=== PATIENT | male | born 1990 | race Caucasian/White ===

== ENCOUNTER 2018-09-22 23:24 | Inpatient (IN) ==
[2018-09-23] MEDS ORDERED: NS 1,000 ML IV ONE ×2 (00:09→04:10)
[2018-09-23] MEDS ORDERED: SODIUM CHLORIDE 0.9% INJ ONE (00:09)
[2018-09-23] MEDS ORDERED: PROTONIX IV ONE (00:09)
[2018-09-23] MEDS: NS 1,000 ML IV SCH ×3 (00:15→15:15)
--- NOTE | 2018-09-23 00:41 | PROVIDER DOCUMENTATION ---
HPI-Abdominal Pain/GI Problem - General Chief Complaint: GI Bleed Stated Complaint: ams Time Seen by Provider: 09/23/18 00:02 Allergies/Adverse Reactions: Patient Allergies Allergy/AdvReac Type Severity Reaction Status Date / Time Penicillins Allergy Mild RASH Verified 09/23/18 02:31 Home Medications: Home Medication List Medication Instructions Recorded Confirmed Last Taken Type Buprenorphine HCl [Subutex] 8 mg SL DAILY 01/28/18 09/23/18 02/15/18 History Aspirin/Acetaminophen/Caffeine 1 tab PO BID PRN 09/04/18 09/23/18 Unknown History [Excedrin Migraine] Omeprazole 1 cap PO DAILY 09/04/18 09/23/18 Unknown History - History of Present Illness-ABD Nature of Presenting Problems: reports of GIB today x4 times since 11 am. hematemesis is dark brown and dark color. no diarrhea. no abd pain. also c/o of LE edema b/l which was worsening. he states taht since his discharged, he has not able to get up. he tried but feels falling which he attributes to no strength. +sob, no chest pain. no fever chills. no other complaint. Review of Systems - Adult - REVIEW OF SYSTEMS - ADULT Constitutional: reports: see HPI Eyes: reports: no symptoms reported Ears, Nose, Mouth & Throat: reports: no symptoms reported Cardiovascular: reports: no symptoms reported Respiratory: reports: no symptoms reported Gastrointestinal: reports: no symptoms reported Genitourinary: reports: no symptoms reported Musculoskeletal: reports: no symptoms reported Integumentary: reports: no symptoms reported Neurological: reports: no symptoms reported Psychiatric: reports: no symptoms reported Endocrine: reports: no symptoms reported Hematologic/Lymphatic: reports: no symptoms reported Allergic/Immunologic: reports: no symptoms reported All Other Systems: Reviewed and Negative Past History - Adult - PAST MEDICAL HISTORY-ADULT Review of Records: reports: Old Records Reviewed, Nursing Assessment Review, Medications Reviewed, Social history reviewed & non-contributory. Major Childhood Illnesses: reports: denies history Cardiovascular: reports: denies history Respiratory: reports: denies history Gastrointestinal: reports: GI bleed Obstetrical/Gynecological: reports: denies history Genitourinary: reports: denies history Musculoskeletal: reports: denies history Neurological: reports: denies history Psychiatric: reports: denies history Endocrine/Immune: reports: denies history Other Conditions: reports: other (dental disease; chronic pain syndrome on subutex) - PRIOR SURGERIES/PROCEDURES Surgical/Procedure History: reports: none, bowel surgery - IMMUNIZATION STATUS Childhood Immunizations: UTD Flu Vaccine: NUTD - FAMILY HISTORY Family History: reviewed, not pertinent - SOCIAL HISTORY Smoking: denies Substance Use: other (on suboxone medicine) Alcohol Use Frequency: never Living Situation: family Physical Exam-General - PHYSICAL EXAM-ADULT Initial Vital Signs Reviewed: Yes - CONSTITUTIONAL General Appearance: alert, cachetic, thin - EYES Eyes: PERRL/EOMI, pink conjunctivae - HEAD, EARS, NOSE, MOUTH & THROAT HENMT: normocephalic/atraumatic, moist mucous membranes - NECK Neck: non-tender, full range of motion - RESPIRATORY Respiratory: chest non-tender, lungs clear, normal breath sounds, no pleuratic chest pain - CARDIOVASCULAR Cardiovascular: normal peripheral pulses, tachycardia - GASTROINTESTINAL (ABDOMEN) Abdominal Exam: normal bowel sounds, non tender, soft (beads suture prior surgery) - MUSCULOSKELETAL Back Exam: normal inspection, no CVA tenderness Extremity: normal range of motion - SKIN Integumentary: warm/dry, rash (dry scalped and petechia, new rash on the right neck) - NEUROLOGIC Neurologic: grossly normal, no motor/sensory deficits - PSYCHIATRIC Psych/Mental Status: oriented x 3 Progress - PLAN OF CARE/RESULTS Progress/Plan/Lab Results: Vital Signs - 8 hr 09/22/18 23:30 Temperature 97.6 F Pulse Rate 101 H Respiratory Rate 18 Blood Pressure 88/59 O2 Sat by Pulse Oximetry 100 Orders Category Date Time Status Cardiac Monitoring DIRECTED Care 09/23/18 00:07 Active Finger Stick Blood Sugar (ED) DIRECTED Care 09/23/18 00:07 Active Oxygen Therapy- ED Nursing DIRECTED Care 09/23/18 00:07 Active Saline Loc NOW Care 09/23/18 00:07 Active CHEST-PORTABLE [RAD] Stat Exams 09/23/18 00:07 Ordered CBC WITH ELECTRONIC DIFF [HEME] Stat Lab 09/23/18 00:07 Uncollected CK PROFILE [SP CHEM] Stat Lab 09/23/18 00:07 Uncollected COMPREHENSIVE METABOLIC PANEL [CHEM] Stat Lab 09/23/18 00:07 Uncollected LACTATE, PLASMA [CHEM] Stat Lab 09/23/18 00:07 Uncollected OCCULT BLOOD NON-FECES Stat Lab 09/23/18 00:37 Uncollected OCCULT BLOOD SCREENING [STOOL] Stat Lab 09/23/18 00:37 Uncollected PROTIME WITH INR [COAG] Stat Lab 09/23/18 00:07 Uncollected PTT [COAG] Stat Lab 09/23/18 00:07 Uncollected TROPONIN T Stat Lab 09/23/18 00:07 Uncollected TYPE & SCREEN [BBK] Stat Lab 09/23/18 00:11 Uncollected 0.9% Sodium Chloride Inj [Ns] 1,000 ml Med 09/23/18 00:09 Active IV 999 mls/hr Pantoprazole [Protonix] Med 09/23/18 00:09 Discontinued 40 mg IV NOW ONE Sodium Chloride 0.9% Med 09/23/18 00:09 Discontinued 10 ml INJ NOW ONE EKG [EKG] Stat Ther 09/23/18 00:07 Ordered Pt signed out to me by , pt has GI, spoke with Dr. Clemente, will admit for GI in the am Result Diagrams: 09/23/18 01:30 09/23/18 01:30 - REASSESSMENT Reassessment #1 Time Reassessed: 01:59 (bp is 99/63 HR 62, vomiting x1, pt is stable, pending on labs prior to admission. ) Status: unchanged - CHANGE OF SHIFT REPORT (ED Provider) 1 Report Given and Care Transferred to:: Dr. Guzman Time of Transfer: 01:59 Items Pending: Labs (and pending for admission) Departure - Departure Date of Disposition Decision: 09/23/18 Time of Disposition Decision: 04:14 DIAGNOSIS: Cachexia Hematemesis Qualifiers: Nausea presence: with nausea Qualified Code(s): K92.0 - Hematemesis GI bleed Qualifiers: GI bleed type/associated pathology: unspecified gastrointestinal hemorrhage type Qualified Code(s): K92.2 - Gastrointestinal hemorrhage, unspecified Disposition: ADMITTED INPATIENT 09 Certified Medical Emergency: Emergent Condition: Stable Referrals and Follow-Ups: None,PCP [Primary Care Provider] - - Critical Care Note This patient required my direct & personal management of CC.: No Attestation - Physician/ ROMANA Attestation Patient care was provided by Advanced Practice Provider:: No The physician spent face to face time with patient:: Yes Advanced Practice Provider documentation review:: Supervising physician onsite and consulted in the evaluation and care of this patient. The physician did have a face to face encounter with the patient.
[2018-09-23 01:51] LABS: BASO# 0.02 X1000 (0.0-0.2); BASO% 0.2 % (0.0-0.8); EOS% 0.9 % (0.0-10.0); HEMATOCRIT 35.2 % (42.0-52.0); HEMOGLOBIN 10.7 g/dL (14.0-18.0); IMM GRAN# 0.06 X1000 (0.0-0.04); IMM GRAN% 0.6 % (0.0-0.5); LYMPH# 1.09 X1000 (1.2-3.4); LYMPH% 10.3 % (20.5-51.1); MCH 26.8 PG (27-31); MCHC 30.4 g/dL (33-37); MONO# 0.33 X1000 (0.11-0.59); MONO% 3.1 % (1.7-9.3); MPV 10.1 FL (7.4-10.4); NEUT# 8.98 X1000 (1.4-6.5); NEUT% 84.9 % (42.2-75.2); PLT 712 X1000 (130-400); RDW 19.2 % (11.5-14.5); WBC 10.58 X1000 (4.8-10.8)
[2018-09-23] MEDS ORDERED: ZOFRAN IV ONE (01:57)
[2018-09-23 02:12] LABS: AGAP 8; ALBUMIN 2.8 g/dL (3.5-5.0); ALKALINE PHOSPHATASE 165 U/L (32-122); BUN 28 mg/dL (8-22); CALCIUM 8.6 mg/dL (8.8-10.2); CHLORIDE 100 mmol/L (98-107); CK PROFILE 41 U/L (24-204); COSMO 290; CREATININE 0.5 mg/dL (0.7-1.2); ESTIMATED GFR > 60; GLUCOSE 84 mg/dL (70-104); GOT 15 U/L (10-34); GPT 21 U/L (10-44); POTASSIUM 3.7 mmol/L (3.5-5.1); SODIUM 143 mmol/L (136-145); TCO2 35 mmol/L (25-35); TOTAL BILIRUBIN 0.16 mg/dL (0.20-1.00); TOTAL PROTEIN 5.7 g/dL (6.3-8.3)
[2018-09-23 02:30] LABS: INR 0.9; PROTIME 12.9 Seconds (11.0-16.0)
[2018-09-23 02:48] LABS: PTT 27.4 Seconds (22.3-41.8)
[2018-09-23] MEDS ORDERED: MORPHINE IV ONE (04:11)
--- NOTE | 2018-09-23 07:03 | Diag Imaging Result Doc PS360 ---
EXAM: CHEST-PORTABLE 09/23/2018 HISTORY: gib TECHNIQUE: AP portable at 0039 COMMENT: The opacities present in the lung bases on 09/10/2018 have improved considerably and there is no evidence of pleural fluid on the left as there was previously. There is some residual opacity in the left lower lobe. The heart size and pulmonary vascularity are within normal limits. IMPRESSION: Improved pulmonary edema and/or pneumonia. Resolution of the left pleural effusion. Electronically signed by Tomas De Anda 09/23/2018 7:01 AM
[2018-09-23] MEDS ORDERED: PROTONIX 80 MG in NS 80 ML IV SCH (07:19)
[2018-09-23] MEDS ORDERED: ZOFRAN IV PRN (07:19)
--- NOTE | 2018-09-23 08:18 | HISTORY AND PHYSICAL ---
PRIMARY CARE PHYSICIAN: None. CHIEF COMPLAINT: Vomiting blood. HISTORY OF PRESENT ILLNESS: This is an extremely cachectic and chronically ill appearing 28-year- old male very well known to our service for multiple admissions. He has been recently admitted and discharged at the beginning of September for pneumonia. He reported that last night he started having hematemesis. Actually, he reported 5 times vomiting blood. He denies any black stools. He reports feeling dizzy and that is why he presented to the emergency department. Here in the ER he was found to be with low blood pressure of 88/59 and a little tachycardic. He received fluids, and blood pressures are a little bit better so patient is going to be admitted for further evaluation and treatment of GI bleeding. PAST MEDICAL HISTORY: 1. Drug abuse. 2. Opiate dependence. 3. Tobacco abuse. 4. History of gastrointestinal bleeding. 5. Peptic ulcer disease. 6. Gastroesophageal reflux disease. 7. Surgery repair of duodenal ulcer. 8. Cholecystectomy. SOCIAL HISTORY: The patient lives at home with mother. The patient reports not using any drugs, but the record from a month ago reports that he was still using amphetamines and methamphetamines which he smokes occasionally. He continues to smoke 1 pack of cigarettes per day. He denies drinking alcohol or drugs. He is on Subutex daily for opiate dependence. FAMILY HISTORY: Remarkable for coronary artery disease and CVA. ALLERGIES: Patient reports being allergic to penicillin. REVIEW OF SYSTEMS: Eleven systems were reviewed, and all symptoms are related in H and P. HOME MEDICATIONS: 1. Excedrin Migraine. 2. Omeprazole 40 mg 1 tablet p.o. daily. 3. Subutex 8 mg sublingual daily. PHYSICAL EXAMINATION: VITAL SIGNS: Temperature 97.6 degrees, heart rate 68, respiratory rate 17, blood pressure 90/62, and O2 saturation 99% on room air. GENERAL: This is an extremely cachectic and chronically ill appearing 28-year-old male lying in bed in no acute distress. BMI of 14.8. HEENT: Head is normocephalic, atraumatic. Mucous membranes very dry. NECK: No JVD noted. No carotid bruits. No lymphadenopathy. No thyromegaly. CARDIOVASCULAR: S1, S2 heard. No murmurs, gallops, or rubs. Regular rate and rhythm. RESPIRATORY: Clear bilaterally to auscultation. No work of breathing or using accessory muscles. ABDOMEN: Soft a little bit distended, but nontender to palpation. Bowel sounds present. No organomegaly. EXTREMITIES: No clubbing, cyanosis, or edema. Peripheral pulses present in both legs. Muscle wasting in both upper and lower extremities. There is swelling in both legs. NEUROLOGICAL: Patient is alert and oriented x3. Moves all 4 extremities. LABORATORY DATA: White cell count 10.58, hemoglobin 10.7, hematocrit 35.2, and platelets 712,000. BMP is unremarkable. Calcium 8.6, total bilirubin 0.16, total protein 5.7 with albumin of 2.8. ASSESSMENT AND PLAN: 1. Gastrointestinal bleeding. The patient has history of GI bleeding. At this point, considering that he is hypotensive and somewhat tachycardic, I prefer to send him to the intensive care unit. Keep him NPO. GI will be consulted. We will start Protonix drip on this patient. We will monitor this patient closely. 2. Opiate dependence. Patient is on Suboxone, but unfortunately he cannot take anything by mouth so at this point we will continue to monitor this patient closely. 3. Tobacco abuse. Patient advised again to stop smoking. 4. History of methamphetamine abuse. Just in case, we will check UDS, and we will go from there. 5. Further recommendations to follow according to the clinical situation of the patient. cc: Elias Epstein MD
[2018-09-23 08:44] LABS: HEMATOCRIT 27.7 % (42.0-52.0); HEMOGLOBIN 8.3 g/dL (14.0-18.0)
[2018-09-23] MEDS ORDERED: MORPHINE IV PRN (11:54)
[2018-09-23 12:31] LABS: HEMATOCRIT 29.3 % (42.0-52.0); HEMOGLOBIN 8.7 g/dL (14.0-18.0)
[2018-09-23] MEDS ORDERED: DILAUDID IV PRN (12:45)
--- NOTE | 2018-09-23 15:53 | EKG Report ---
Test Performed on : 09/23/2018 1:52:12 PM Test Reason : gib Blood Pressure : / mmHG Vent. Rate : 058 BPM Atrial Rate : 058 BPM P-R Int : 136 ms QRS Dur : 070 ms QT Int : 426 ms P-R-T Axes : 000 067 067 degrees QTc Int : 418 ms Sinus bradycardia. Septal infarct , age undetermined Abnormal ECG When compared with ECG of 04-SEP-2018 17:44, (Unconfirmed) Vent. rate has decreased BY 47 BPM Septal infarct is now present Nonspecific T wave abnormality no longer evident in Inferior leads Nonspecific T wave abnormality, improved in Lateral leads QT has shortened Unconfirmed Result
[2018-09-23 16:18] LABS: HEMATOCRIT 32.1 % (42.0-52.0); HEMOGLOBIN 9.7 g/dL (14.0-18.0)
[2018-09-23] MEDS: PROTONIX 80 MG in NS 80 ML IV SCH (17:48)
[2018-09-24 00:24] LABS: HEMATOCRIT 29.9 % (42.0-52.0)
[2018-09-24] MEDS ORDERED: OFIRMEV 1000 MG/ISOTONIC SOLN 1,000 MG/100 ML BOTTLE IV PRN (02:21)
[2018-09-24] MEDS: DILAUDID IV PRN ×2 (03:30→10:05)
[2018-09-24] MEDS: PROTONIX 80 MG in NS 80 ML IV SCH ×2 (04:17→14:07)
--- NOTE | 2018-09-24 08:01 | GASTROENTEROLOGY CONSULTATION ---
DATE: 09/23/2018 REASON FOR CONSULTATION: Coffee ground emesis, intractable nausea and vomiting. HISTORY OF PRESENT ILLNESS: Mr. 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 He represents with intractable nausea, vomiting and coffee ground emesis as well as continued weight loss and dysphagia. The patient left against medical advice during his last admission, when he was advised to stay in the hospital for parenteral nutrition as well as transfer for fluoroscopic dilation of the gastric outlet obstruction seen on endoscopy on 09/07/2018. At that time he was also noted to have LA grade D esophagitis, a moderate size hiatal hernia, and a dilated stomach consistent with gastric outlet obstruction. The patient returns currently with one day history of coffee ground emesis. His mom reports that he has been complaining of some dysphagia to liquids, although the patient denies this. He denies any abdominal pain, fevers, chills, sweats, chest pain, or shortness of breath. He has become more edematous with lower extremity swelling. He denies any persistent NSAID use. REVIEW OF SYSTEMS: As per HPI. The patient has continued to lose weight and has poor appetite. The rest of the 12-point review of systems was negative. PAST MEDICAL HISTORY: Opioid abuse, penetrating ulcer status post vagotomy, antrectomy and Billroth I anastomosis in January 2018. Severe protein calorie malnutrition, gastric outlet obstruction, LA grade D esophagitis, moderate size hiatal hernia, anemia, recent diagnosis of ESBL pneumonia, GERD, tobacco abuse. PAST SURGICAL HISTORY: As described above as well as cholecystectomy. SOCIAL HISTORY: The patient lives at home with his mother. He has a history of amphetamine abuse. He smokes one pack per day. Denies any alcohol use. He is on Suboxone for opioid dependence. FAMILY HISTORY: Notable for prior stroke and coronary artery disease. ALLERGIES: Penicillin. MEDICATIONS: 1. Excedrin Migraine. 2. Omeprazole. 3. Subutex. PHYSICAL EXAMINATION: VITAL SIGNS: Temperature 97.3, heart rate 65, respiratory rate 16, blood pressure 79/57, O2 saturation 99% on two liters nasal cannula. GENERAL: The patient is cachectic, awake, alert, oriented. No acute distress. Severely malnourished. HEENT: Sclerae anicteric. He has edema over his eyelids. Coffee ground in his nares and mouth. Temporal wasting. NECK: No JVD, no lymphadenopathy. CARDIAC: Regular rate and rhythm. No murmurs, rubs, or gallops. LUNGS: Clear to auscultation bilaterally. ABDOMEN: Surgical scar noted. Soft, nontender, nondistended. Normoactive bowel sounds. No rebound or guarding. EXTREMITIES: Multiple excoriations in the lower extremities and upper extremities. Anasarca with pitting edema that is 2+ in the lower extremities. SKIN: Pale, warm and well perfused. NEUROLOGIC: Moving all extremities symmetrically. PSYCHIATRIC: Poor insight to current illness. LABS: White count of 10.5, hemoglobin 9.7, platelets 712. INR 0.9. Sodium 143, potassium 2.7, chloride 100, bicarb 35, BUN 28, creatinine 0.5, total bilirubin 0.16, AST 15, ALT 21, alkaline phosphatase 165, albumin 2.8. Lactate 1.8. IMAGING: Chest x-ray shows improved pulmonary edema and/or pneumonia, resolution of left pleural effusion. ASSESSMENT AND PLAN: Mr. Wharton is a 28-year-old man with opioid abuse and history of nonsteroidal anti-inflammatory induced duodenal ulcer requiring vagotomy, antrectomy and Billroth I anastomosis, who represents with nausea and vomiting as well as coffee ground emesis in the setting of known LA grade D esophagitis and gastric outlet obstruction. I suspect that his coffee ground emesis is likely from untreated esophagitis as well as recurrent nausea and vomiting. He has not had intervention done for his small bowel obstruction. At this point, I do not anticipate that he would need repeat endoscopy for his coffee ground emesis. He should be on a PPI IV b.i.d. and strong consideration should be taken for the patient to be transferred to [facility] or [facility], where they can do fluoroscopic dilation of his gastric outlet obstruction. 1. Upper gastrointestinal bleed secondary to LA grade D esophagitis. Continue IV PPI b.i.d. Keep n.p.o. for now. Trend hemoglobin and hematocrit every 6-8 hours. Transfuse as needed to maintain hemoglobin 7-8. 2. Gastric outlet obstruction. Recommend nutrition consult to reinitiate total parenteral nutrition given the patient's severe protein calorie malnutrition. Recommend transfer to [facility] for dilation under fluoroscopy, given the patient's high risk for complications including perforation and bleeding. 3. Anemia, as above. The patient has known iron and folate deficiencies. Continue to replace folate as well as iron. Recommend IV iron therapy. 4. Thrombocytosis, likely acute phase reactant. Thank you for this consult. We will follow with you. Please call with any questions or concerns.
[2018-09-24 08:40] LABS: HEMATOCRIT 36.2 % (42.0-52.0); HEMOGLOBIN 10.9 g/dL (14.0-18.0); MCH 26.6 PG (27-31); MCHC 30.1 g/dL (33-37); MCV 88.3 FL (81-99); MPV 9.4 FL (7.4-10.4); RBC 4.1 XMIL (4.7-6.1); RDW 19.6 % (11.5-14.5); WBC 24.41 X1000 (4.8-10.8)
[2018-09-24 08:57] LABS: AGAP 11; BUN 37 mg/dL (8-22); CALCIUM 7.6 mg/dL (8.8-10.2); CHLORIDE 107 mmol/L (98-107); COSMO 284; CREATININE 0.3 mg/dL (0.7-1.2); ESTIMATED GFR > 60; GLUCOSE 65 mg/dL (70-104); SODIUM 139 mmol/L (136-145); TCO2 21 mmol/L (25-35)
[2018-09-24] MEDS ORDERED: ALBUMIN 25% IV SCH (09:00)
[2018-09-24 09:07] LABS: IRON SATURATION 16 %; TIBC 134 ug/dL; TOTAL IRON 21 ug/dL (53-167); UNBOUND IRON 113 ug/dL (112-346)
--- NOTE | 2018-09-24 09:50 | Diag Imaging Result Doc PS360 ---
EXAM: CT THORAX/ABD/PELVIS W/O CON HISTORY: dyspnea/abdominal pain/gastric outlet obstruction TECHNIQUE: 1. CT chest without contrast 2. CTA abdomen and pelvis without contrast COMPARISON: Abdomen and pelvis compared to 01/28/2018 FINDINGS: Chest: There is body wall edema. There is a moderate-sized left-sided pleural effusion measuring 4.0 cm posteriorly and inferiorly in the midline and a smaller right effusion measuring 2.6 cm. No cardiomegaly. No thoracic aortic aneurysm. No enlarged lymph nodes. There are calcified left hilar lymph nodes. There are patchy infiltrates in the left upper lobe. There are more prominent infiltrates with air bronchograms in the left lower lobe with tiny infiltrates in the right lower lobe. There is atelectasis in both lower lobes. Abdomen and pelvis: There is body wall edema. Small to moderate amount of abdominal and pelvic ascites is present. No focal hepatic normality identified on this noncontrasted exam. The gallbladder has been removed. The spleen is not enlarged. No definite abnormality to the pancreas, adrenal glands, or kidneys. No aortic aneurysm. Oral contrast fills the colon. No bowel obstruction. The urinary bladder is moderately distended and is normal. IMPRESSION: Chest: 1. Body wall edema 2. Pleural effusions with basilar atelectasis 3. Bilateral patchy infiltrates with a consolidated area with air bronchograms in the left lower lobe Abdomen and pelvis: 1. Body wall edema 2. Small to moderate amount of ascites 3. Cholecystectomy This exam was performed using automated exposure control, adjustment of mA or kV according to patient size, and/or use of iterative reconstruction technique. Electronically signed by Jose Juan Wright 09/24/2018 9:48 AM
[2018-09-24] MEDS: MERREM 500 MG in NS 50 ML IV SCH ×2 (10:04→16:24)
[2018-09-24] MEDS ORDERED: ZYVOX 600 MG/D5W 600 MG/300 ML IVPB IV SCH (10:30)
[2018-09-24 11:34] LABS: FERRITIN 94 ng/mL (30-400)
--- NOTE | 2018-09-24 12:17 | PROVIDER PROGRESS NOTE ---
Progress Note - - SUBJECTIVE: No acute overnight events. Coffee ground emesis resolved. No transfusion needs. No N/V/F. He denies abdominal pain. He is requesting clear liquid diet. No melena. OBJECTIVE: Last Vital Signs Temp 96.8 F L 09/24/18 12:00 Pulse 71 09/24/18 12:00 Resp 13 09/24/18 12:00 BP 75/44 09/24/18 12:00 Pulse Ox 100 09/24/18 12:00 Height 5 ft 5 in Weight 98 lb 3.2 oz GENERAL: cachectic, NAD HEENT: Sclerae anicteric. dry MM NECK: No JVD, no lymphadenopathy. CARDIAC: Regular rate and rhythm. No murmurs, rubs, or gallops. LUNGS: Clear to auscultation bilaterally. ABDOMEN: Surgical scar noted. Soft, nontender, nondistended. Normoactive bowel sounds. No rebound or guarding. EXTREMITIES: Multiple excoriations in the lower extremities and upper extremities. Anasarca with pitting edema that is 2+ in the lower extremities. SKIN: Pale, warm and well perfused. NEUROLOGIC: Moving all extremities symmetrically. PSYCHIATRIC: Poor insight to current illness. LABS: 09/23/18 09/24/18 09/24/18 01:30 08:19 08:19 WBC 24.41 H D Hgb 10.9 L D Plt Count 765 H INR 0.90 Sodium 139 Potassium 4.0 Chloride 107 Carbon Dioxide 21 L BUN 37 H Creatinine 0.3 L Glucose 65 L 09/24/18 09/24/18 08:19 08:19 Ferritin 94 Opl-P-Wryfzxplzqx Pept Vitamin B12 930 H Folate 19.9 A/P: Mr. Wharton is a 28-year-old man with opioid abuse and history of [id number]-[id number], penetrating duodenal ulcer requiring vagotomy, antrectomy and Billroth I anastomosis, who represents with nausea and vomiting as well as coffee ground emesis in the setting of known LA grade D esophagitis and gastric outlet obstruction. UGIB is likely from known esophagitis. Hgb this morning is increased without need for transfusion. Patient noted to have mild to moderate ascites and PNA on CT A/P yesterday. #UGIB: from known esophagitis - continue PPI IV BID - trial of clear liquid diet - can add carafate 1gm liquid QID - trending H/H, transfuse as needed for hgb 7-8 - antiemetic as needed #GOO: noted on recent EGD: patient need dilation under fluoroscopy given poor surgical candidate; transfer in process #Severe protein calorie malnutrition: nutrition consulted; PICC ordered, reinitiate TPN; MVI #Anemia: blood loss as well as iron and folate deficient; continue repletion #PNA: on merrem and linezolid #Thrombocytosis: acute phase Will follow with you. Please call with questions or concerns
[2018-09-24] MEDS ORDERED: NS 250 ML ONE (12:28)
[2018-09-24 13:12] LABS: INR 1.24; PROTIME 16.6 Seconds (11.0-16.0)
[2018-09-24 13:34] LABS: MAGNESIUM 1.8 mg/dL (1.5-2.7); PHOSPHORUS 3.1 mg/dL (2.7-4.5); PREALBUMIN 10.3 mg/dL (20-40)
[2018-09-24 16:20] VITALS: BP 97/62
--- NOTE | 2018-09-25 10:04 | ECHO REPORT ---
ORDER DATE: 09/24/2018 ECHOCARDIOGRAM: MEASUREMENTS: 1. Left ventricular end-diastolic diameter 4.1. 2. Systolic diameter 2.9. 3. Septal thickness 0.6. 4. Posterior wall thickness 0.6. 5. Aortic root 2.9. 6. Left atrium 3.9. SUMMARY: 1. Adequate quality study. 2. Aortic valve is trileaflet and opens normally on 2-dimensional images. Peak gradient across the aortic valve is less than 10 mmHg. Mitral, tricuspid, and pulmonic valves are without evidence of structural abnormality with trace mitral regurgitation and mild tricuspid regurgitation. The estimated systolic PA pressure by Doppler is 35 mmHg. Aortic root is normal size. 3. Normal left ventricular dimensions demonstrated. Estimated left ventricular ejection fraction is approximately 60%. No regional wall motion abnormalities are evident. Left atrium, right atrium, right ventricle are normal in size with grossly preserved right ventricular systolic performance. 4. No pericardial effusion. 5. Appearance of inferior vena cava suggests normal central venous pressure. cc: MD Wendi Araujo MD
[2018-09-26] MEDS ORDERED: PROTONIX IV SCH (04:26)
--- NOTE | 2018-09-26 07:56 | EKG Report ---
Test Performed on : 09/23/2018 11:59:44 PM Test Reason : Bradycardia Blood Pressure : / mmHG Vent. Rate : 049 BPM Atrial Rate : 049 BPM P-R Int : 120 ms QRS Dur : 080 ms QT Int : 492 ms P-R-T Axes : 012 093 081 degrees QTc Int : 444 ms Sinus bradycardia. Rightward axis Borderline ECG When compared with ECG of 23-SEP-2018 13:52, (Unconfirmed) Criteria for Septal infarct are no longer present Confirmed by Hilton Tomlinson MD ([id number]) on 09/26/2018 9:12:34 PM
--- NOTE | 2018-09-26 09:53 | DISCHARGE SUMMARY ---
ADMISSION DATE: 09/23/2018 DISCHARGE DATE: 09/24/2018 FINAL DISCHARGE DIAGNOSES: 1. Bilateral lobe pneumonia. 2. Gastrointestinal bleed secondary to severe esophagitis. 3. Gastric outlet obstruction. 4. Severe protein calorie malnutrition. 5. Leukocytosis. 6. Anemia. 7. History of truncal vagotomy with antrectomy and Billroth-I anastomosis secondary to a bleeding duodenal ulcer. CONSULTATIONS: GI consultation with DR. Elliott. IMAGING: CT of the chest, abdomen and pelvis performed on 09/24/2018 revealed anasarca. Bilateral infiltrates with air bronchograms in the left lower lobe. Moderate ascites. HOSPITAL COURSE: Mr. Wharton is a 28-year-old male with a history of recently diagnosed gastric outlet obstruction as well as a history of a truncal vagotomy, antrectomy and Billroth-! anastomosis. He presented to the ER with the chief complaint of coffee-ground emesis as well as abdominal pain. The patient was admitted to the hospitalist service and started on IV Protonix. The patient had been seen during the prior hospitalization 2 weeks ago, at which time an endoscopy was performed, and the patient was diagnosed with gastric outlet obstruction as well as Grade D esophagitis. It was recommended that the patient be transferred to a higher level of care to undergo dilation of the gastric outlet obstruction under fluoroscopic; however, the patient left against medical advice during that hospitalization. A CT of the chest, abdomen and pelvis was done today which revealed bilateral infiltrates suggestive of pneumonia as well as ascites. Blood cultures were obtained, and the patient was started on broad-spectrum antibiotics. A PICC line has been ordered, and the patient will be started on TPN. The case was discussed with the on-call critical care physician at [facility], and he has accepted the patient for transfer today. This was discussed with the patient, and he is agreeable to being transferred for a higher level of care. cc: Wendi Miller MD
== END 2018-09-24 20:11 | disposition short-term general hospital (02) | DRG 391 ==
LOC: SUPCPDRO → ED 23:24 → SUATTDRO 09-23 07:27 → EDIPHOLD 09-23 07:27 → ICU 09-23 13:41
PROVIDERS: ATTEND Internal Medicine
CPT/HCPCS: 36569; 71010; 71045; 71250; 74176; 80048; 80053; 82270; 82271; 82550; 82607; 82728; 82746; 82948; 83540; 83550; 83605; 83735; 83880; 84100; 84134; 84484; 85014; 85018; 85025; 85027; 85379; 85610; 85730; 86850; 86900; 86901; 87040; 93005; 93010; 93306; 96361; 96365; 96366; 96375; 96376; 99285; C9113; J0131; J1170; J2020; J2185; J2270; J2405; J7030; J7050; P9047; S0164; XXXXX